=== PATIENT | male | born 1965 | race African-American/Black ===

== ENCOUNTER 2017-03-18 10:04 | Emergency (ER) | payer MEDICARE, OTHER ==
[~2017-03-18] VITALS: Ht 182.9 cm; Wt 89.0 kg
[~2017-03-18 10:04] MED LIST: ALPR.25 PO; ASPI325T PO; AUGM500T7 PO; CYCL1PAK PO; DIPH25 PO; DOCU1CAP39 PO; FENT50DI TD; IBUP800T23 PO; LEVEMIR SQ; LISI-360 PO; LORTA5 PO; PERC10TA27 PO; POLY17S PO; PROT40TA PO; TAMS.4 PO; THERM PO; Z.0.INSULINSYR SQ
[2017-03-18 10:06] VITALS: BP 149/86; PULSE 82; RESP 20; TEMP 97.5; O2SAT 100
[2017-03-18] MEDS ORDERED: LANTUS2P SQ (10:33)
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
== END 2017-03-18 11:17 | disposition home or self-care (01) ==
LOC: NEPK 10:04
DX: R22.42 Localized swelling, mass and lump, left lower limb (principal); S99.921A Unspecified injury of right foot, initial encounter; W22.8XXA Striking against or struck by other objects, initial encounter; Y93.55 Activity, bike riding; Y92.488 Other paved roadways as the place of occurrence of the external cause; F17.210 Nicotine dependence, cigarettes, uncomplicated
CPT/HCPCS: 99282

== ENCOUNTER 2017-11-30 13:19 | Emergency (ER) | payer MEDICARE, OTHER ==
[~2017-11-30] VITALS: Ht 182.9 cm; Wt 84.0 kg
[~2017-11-30 13:19] MED LIST changes: -ALPR.25 PO; -ASPI325T PO; -AUGM500T7 PO; -DOCU1CAP39 PO; -FENT50DI TD; +LANTUS2P SQ; -LEVEMIR SQ; -PERC10TA27 PO; -PROT40TA PO; -TAMS.4 PO; -THERM PO
[2017-11-30 13:21] VITALS: BP 140/82; PULSE 98; RESP 20; TEMP 98.2; O2SAT 98
[2017-11-30] MEDS ORDERED: LANTUS2P SQ (13:37)
[2017-11-30] MEDS ORDERED: LISI10TA3 PO (13:37)
--- NOTE | 2017-11-30 13:48 | PD ---
HPI Chief Complaint: Fall Time Seen by Provider: 13:39 Travel History International Travel<30 days: No Contact w/Intl Traveler<30days: No Traveled to known affect area: No History of Present Illness HPI Patient is a 52-year-old male presenting to emergency Department for evaluation of a headache, neck pain and epistaxis. He states his nose was bleeding this morning. He states that he had a slip and fall last night, hitting his head on the floor. Unknown LOC. Patient also reports buzzing in his right ear. He denies any nausea, vomiting, dizziness, visual changes. He states his headache is a 7 out of 10 and states it's dull. Patient not take any medication to alleviate the pain, pain is exacerbated with movement of his neck. Patient denies any chest pain, dizziness, shortness of breath prior to falling. Epistaxis resolved on its own. Patient's past medical history significant for type 2 diabetes and hypertension. He denies any illicit drug use or alcohol use. He does endorse tobacco use. PFSH Past Medical History Asthma: Yes Anxiety: Yes Depression: Yes COPD: Yes (CHRONIC BRONCHITIS) Diabetes: Yes Gastrointestinal Disorders: Yes GERD: Yes Genitourinary: Yes (URINARY RETENTION, SCROTAL EDEMA) Headaches: Yes (OCCASIONAL) Hiatal Hernia: Yes Hypertension: Yes Inguinal Hernia: Yes (R SIDE) Tetanus Vaccination: < 5 Years Influenza Vaccination: Yes PNEUMOCCOCAL Vaccine (Year): 2 Past Surgical History Abdominal Surgery: Yes (RIGHT INGUINAL HERNIA REPAIR) Body Medical Devices: PLATES AND SCREWS RIGHT WRIST Neurologic Surgery: Yes Social History Alcohol Use: Yes (OCCASSIONAL) Tobacco Use: Yes (1 PPD ) Substance Use: No Allergies-Medications (Allergen,Severity, Reaction): Coded Allergies: No Known Allergies (Verified Adverse Reaction, Unknown, 11/30/17) Reported Meds & Prescriptions Reported Meds & Active Scripts Active Reported Lisinopril 10 Mg Tab 10 Mg PO DAILY Lantus Inj (Insulin Glargine) 1,000 Unit/10 Ml Vial 50 Units SQ HS Review of Systems Except as stated in HPI: all other systems reviewed are Neg HENT: Positive: Headaches, Nosebleed, Neck Pain Cardiovascular: No: Chest Pain or Discomfort Respiratory: No: Cough, Shortness of Breath Gastrointestinal: No: Nausea, Vomiting Musculoskeletal: Positive: Myalgias Neurologic: No: Weakness, Dizziness, Syncope, Focal Abnormalities Physical Exam Narrative GENERAL: Well-developed, well-nourished, alert gentleman. Resting comfortably in no acute distress. SKIN: Warm and dry. HEAD: Atraumatic. Normocephalic. EYES: Pupils equal and round. No scleral icterus. No injection or drainage. ENT: No nasal bleeding or discharge. No hematoma noted. Nasal passages with no obvious sign of bleeding or old blood. Mucous membranes pink and moist. NECK: Trachea midline. No JVD. Mild tenderness palpation to paraspinal musculature in the cervical region. Full range of motion with flexion and rotation and extension. No cervical spine tenderness noted CARDIOVASCULAR: Regular rate and rhythm. RESPIRATORY: No accessory muscle use. Clear to auscultation. Breath sounds equal bilaterally. GASTROINTESTINAL: Abdomen soft, non-tender, nondistended. Hepatic and splenic margins not palpable. MUSCULOSKELETAL: Extremities without clubbing, cyanosis, or edema. No obvious deformities. No spinal tenderness or step-off noted. NEUROLOGICAL: Awake and alert. No obvious cranial nerve deficits. Motor grossly within normal limits. Five out of 5 muscle strength in the arms and legs. Normal speech. PSYCHIATRIC: Appropriate mood and affect; insight and judgment normal. Data Data Last Documented VS Vital Signs Date Time Temp Pulse Resp B/P (MAP) Pulse Ox O2 Delivery O2 Flow Rate FiO2 11/30/17 13:35 17 99 Room Air 11/30/17 13:21 98.2 98 140/82 (101) Orders Orders Ct Brain W/O Iv Contrast(Rout) (11/30/17 ) Ct Cerv Spine W/O Contrast (11/30/17 ) MDM Medical Decision Making Medical Screen Exam Complete: Yes Emergency Medical Condition: Yes Interpretation(s) Vital Signs Date Time Temp Pulse Resp B/P (MAP) Pulse Ox O2 Delivery O2 Flow Rate FiO2 11/30/17 13:35 17 99 Room Air 11/30/17 13:21 98.2 98 20 140/82 (101) 98 Room Air Differential Diagnosis Sprain versus strain versus spasm versus concussion versus intracranial hemorrhage versus other Narrative Course Patient is a 52-year-old male that presented to the emergency room for evaluation after a mechanical fall that he sustained last night subsequently hitting his head. No focal deficits noted on exam. Patient's vital signs are stable. Imaging ordered. CT scan of the cervical spine which was read by the radiologist shows no acute disease. CT scan of the brain shows no acute process. Patient presented complaining of epistaxis, there was no active bleeding on arrival, there was no lesions or dried blood in nasal passages. Patient is going to be discharged home, he is encouraged to return to emergency department immediately for any new or worsening symptoms. He is encouraged take Tylenol as needed and as directed for pain patient verbalized understanding of instructions. Patient is stable for discharge. Diagnosis Primary Impression: Fall Qualified Codes: W19.XXXA - Unspecified fall, initial encounter Additional Impression: Head injury Qualified Codes: S09.90XA - Unspecified injury of head, initial encounter Referrals: Primary Care Physician 3 days Patient Instructions: General Instructions, Head Injury (ED) Additional Instructions: Return to emergency department immediately for any new or worsening symptoms Follow-up with your primary doctor Take aktn-[id number]-shvente acetaminophen as needed and as directed for pain Med/Other Pt SpecificInfo: No Change to Meds Disposition: 01 DISCHARGE HOME Condition: Stable Berta Cilnton Nov 30, 2017 13:48
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
--- NOTE | 2017-11-30 15:02 | RADRPT ---
EXAM DATE/TIME: 11/30/2017 14:17 [facility] COMPARISON: CT CERVICAL SPINE W/O CONTRAST, May 05, 2016, 20:01. INDICATIONS : Trauma, fall. RADIATION DOSE: 37.92 CTDIvol (mGy) MEDICAL HISTORY : Cardiovascular disease. Hypertension. Diabetes mellitus type 2. SURGICAL HISTORY : None. ENCOUNTER: Initial ACUITY: 1 day PAIN SCALE: 5/10 LOCATION: neck TECHNIQUE: Volumetric scanning of the cervical spine was performed. Multiplanar reconstructions in the sagittal, coronal and oblique axial planes were performed. Using automated exposure control and adjustment o f the mA and/or kV according to patient size, radiation dose was kept as low as reasonably achievable to obtain optimal diagnostic quality images. DICOM format image data is available electronically f or review and comparison. FINDINGS: VERTEBRAE: Normal vertebral body height. There is some chronic hypertrophic change at the medial right first rib from either degenerative change or prior injury. ALIGNMENT: No evidence of subluxation. C2-C3: The bony spinal canal is normal in size. No evidence of disc bulge or herniation. The neural forami na are bilaterally patent. C3-C4: The bony spinal canal is normal in size. No evidence of disc bulge or herniation. The neural forami na are bilaterally patent. C4-C5: The bony spinal canal is normal in size. No evidence of disc bulge or herniation. The neural forami na are bilaterally patent. C5-C6: The bony spinal canal is normal in size. No evidence of disc bulge or herniation. The neural forami na are bilaterally patent. Anterior marginal osteophytes are seen. C6-C7: The disc demonstrates decreased height. There is minimal osteophytic ridging without significant sten osis. Anterior marginal osteophytes are seen. There is uncovertebral hypertrophy and narrowing of the neural foramina bilaterally. C7-T1: The bony spinal canal is normal in size. No evidence of disc bulge or herniation. The neural forami na are bilaterally patent. CONCLUSION: Degenerative change of the lower cervical spine. An acute bony abnormality is not seen. Juan Daniel Elkins MD on November 30, 2017 at 14:56 Board Certified Radiologist. This report was verified electronically.
== END 2017-11-30 15:35 | disposition home or self-care (01) ==
LOC: NEPC 13:19
DX: S09.90XA Unspecified injury of head, initial encounter (principal); M54.2 Cervicalgia; E11.9 Type 2 diabetes mellitus without complications; I10 Essential (primary) hypertension; F17.200 Nicotine dependence, unspecified, uncomplicated; W01.0XXA Fall on same level from slipping, tripping and stumbling without subsequent striking against object, initial encounter; Z79.4 Long term (current) use of insulin
CPT/HCPCS: 70450; 72125; 99285

== ENCOUNTER 2018-04-17 13:22 | Emergency (ER) | END 2018-04-17 16:04 | disposition home or self-care (01) | DX: S40.012A Contusion of left shoulder, initial encounter (principal); W10.9XXA Fall (on) (from) unspecified stairs and steps, initial encounter | CPT/HCPCS: 73030; 96372; 99283; J1885 ==